=== PATIENT | female | born 1985 | race Caucasian/White ===

== ENCOUNTER → 2018-03-15 | Outpatient (CLI) | payer OTHER ==
--- NOTE | 2018-03-15 10:39 | P.HPBAR ---
Bariatric H&P - History & Physicial H&P Date: 03/15/18 History & Physicial: Visit/CC: Patient initial contact: Initial weight: Initial weight in pounds: Height: Initial BMI: Last weight: Current weight: Current weight in pounds: Current BMI: [place] body weight (based on NIH guidelines): Excess body weight loss: The patient is a 32 year-old F who presents for Bariatric Assessment. HPI: She is looking into the gastric bypass. Highest weight 288 pounds. She wants to get down to under 180 to 160 pounds. She is very healthy. She has lower back pain and sees a chiropractor for it. Has severe hip pain bilateral and has difficulty walking. She has knee pain both. She has ankle pain. Morbid obesity runs in her family with her grandmother losing 100 pounds on Viktoria Uziel. Her mother had weight loss surgery. She is seeing Katt Vaughan for medical supervised weight loss and is using an homar. She has tried medical supervised weight loss over 4 years ago with Paleo diet. Past tobacco use. She has occassional right upper quadrant pain. ABDOMEN: PLAN: 1. MBSC calculator 2. EGD advsied 3. 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 Obstetric history: First was a 7#15oz. This is her second and she has had care with la since 9 weeks. O neg , abs neg, Rub nonimmune, RPR NR, Hep B neg, normal 1hr GTT, GBS neg. Normal anatomy US and she got rhogam on 12-24-13 at 28 weeks. History of Any Multi-Drug Resistant Organisms: None Reported Past Surgical History: Section Past Anesthesia/Blood Transfusion Reactions: No Reported Reaction Past Psychological History: Depression Smoking Status: Never smoker Past Alcohol Use History: None Reported Past Drug Use History: None Reported Bariatric Checklist Checklist: Plan: Checklist: EGD: 1. Hiatal hernia: 2. H. Pylori: HgbA1c: Vitamin D: Smoking: Never smoker Primary care physician referral: Psychiatry clearance: Cardiology clearance: Sleep study: Diet journal: VTE risk score: VTE risk level: Rehab needs at discharge:
[2018-03-15 12:10] LABS: HCT 41.6 % (34.0-46.0); HGB 13.9 gm/dL (11.4-16.0); MCH 29.9 pg (25.0-35.0); MCHC 33.4 g/dL (31.0-37.0); MCV 89.5 fL (80.0-100.0); Mean Platelet Volume 6.3; Platelet Count 256 k/uL (150-450); RBC 4.65 m/uL (3.80-5.40); RDW 13.7 % (11.5-15.5); WBC 5.4 k/uL (3.8-10.6)
[2018-03-15 14:04] VITALS: BP 125/88; PULSE 85; TEMP 98.2; BMI 44.2
[2018-03-15 18:49] LABS: Albumin 4.5 g/dL (3.80-4.90); Albumin/Globulin Ratio 2.05 (1.20-2.10); Anion Gap 5.8 mmol/L (4.00-12.00); Calcium 9.5 mg/dL (8.7-10.3); Carbon Dioxide 28.2 mmol/L (21.6-31.8); Globulin 2.2 g/dL (2.1-3.7); Iron Saturation 20.4 (12.00-45.00); LDL Cholesterol,Calculated 108.6 mg/dL (0.0-131.0); Potassium 5.1 mmol/L (3.5-5.5); Total Bilirubin 0.6 mg/dL (0.2-1.2); Total Protein 6.7 g/dL (6.2-8.2); VLDL Calculation 17.4 mg/dL (5.00-40.00)
[2018-03-15 18:57] LABS: Vitamin D 25 Hydroxy 21.8 ng/mL (30.0-100.0)
[2018-03-15 20:01] LABS: Hemoglobin A1C 5.1 % (4.0-6.0)
[2018-03-15 21:26] LABS: Folate, Serum 15.6 ng/mL
== END | disposition home or self-care (01) ==
LOC: BARWHC3 09:44
PROVIDERS: ATTEND Surgery Plastic and Reconstructive Surgery
DX: E88.81 Metabolic syndrome and other insulin resistance (principal); E66.01 Morbid (severe) obesity due to excess calories; E44.0 Moderate protein-calorie malnutrition; E55.9 Vitamin D deficiency, unspecified; F32.9 Major depressive disorder, single episode, unspecified; I11.9 Hypertensive heart disease without heart failure; G47.30 Sleep apnea, unspecified; M54.5 Low back pain; M25.552 Pain in left hip; M25.551 Pain in right hip; R26.2 Difficulty in walking, not elsewhere classified; M25.562 Pain in left knee; M25.561 Pain in right knee; M25.579 Pain in unspecified ankle and joints of unspecified foot; Z83.49 Family history of other endocrine, nutritional and metabolic diseases; Z68.43 Body mass index [BMI] 50.0-59.9, adult; Z98.890 Other specified postprocedural states
CPT/HCPCS: 84425; 80061; 80053; 82607; 82728; 82746; 83540; 83550; 84443; 85027; 82306; 83036; 93005; 36415; G0463; 99211

== ENCOUNTER → 2019-05-16 | Outpatient (CLI) | payer OTHER ==
--- NOTE | 2019-05-16 10:36 | US ---
EXAMINATION TYPE: Transabdominal DATE OF EXAM: 05/16/2019 9:42 AM COMPARISON: NONE CLINICAL HISTORY: Z36 Confirm dates. EXAM PERFORMED: Transabdominal (TA) EXAM MEASUREMENTS: GESTATIONAL AGE / DATING Physician Established: Not yet established Dates by LMP: (10 weeks/0 days) EDC: 12/12/2019 Dates by First Scan: No previous this is first scan Dates by Current Scan for: (9 weeks/5 days) EDC: 12/14/2019 MATERNAL ANATOMY Uterus: 14.9 x 7.5 x 9.2 cm Right Ovary: 3.4 x 1.9 x 4.0cm Left Ovary: 3.6 x 3.1 x 3.4 cm Post CDS / Adnexa: wnl Presence of free fluid: none GESTATION / SURVEY CRL: 2.9 cm (9 weeks/5 days) Yolk Sac (normal less than 6mm): 0.5 cm Heart Rate: 160 bpm Rhythm: Normal IUP: Live IUP Date of LMP: 03/07/2019 Live IUP that correlates with LMP. IMPRESSION: Single live intrauterine with a sonographic age of 9 weeks and 5 days and estim ated date of delivery of 12/14/2019, concordant with menstrual age.
== END | disposition home or self-care (01) ==
LOC: RADUSWWP 09:24
PROVIDERS: ATTEND Obstetrics & Gynecology
DX: Z36.9 Encounter for antenatal screening, unspecified (principal)
CPT/HCPCS: 76801

== ENCOUNTER 2019-12-11 05:50 | Inpatient (IN) | payer OTHER ==
[2019-12-11] MEDS ORDERED: OXYTOCIN 10 UNIT/ML 1 ML VIAL IM PRN (06:07)
[2019-12-11] MEDS ORDERED: CARBOPROST TROMETHAMINE 250 MCG/ML 1 ML AMP IM PRN (06:07)
[2019-12-11] MEDS ORDERED: TERBUTALINE 1 MG/ML VIAL SQ PRN (06:07)
[2019-12-11] MEDS ORDERED: AMPICILLIN 2,000 MG in SODIUM CHLORIDE 0.9% 100 ML IVPB STA (06:07)
[2019-12-11] MEDS ORDERED: LIDOCAINE 0.5% (PF) 5 MG/ML (50 ML SDV) SQ PRN (06:07)
[2019-12-11] MEDS ORDERED: METHYLERGONOVINE 0.2 MG/ML 1 ML AMP IM PRN (06:07)
[2019-12-11] MEDS ORDERED: OXYTOCIN 30 UNITS/500 ML NS 30 UNIT in SALINE 1 500ML.BAG IV SCH (06:15)
[2019-12-11] MEDS: LACTATED RINGERS 1,000 ML IV SCH ×2 (06:25→12:09)
[2019-12-11 06:50] LABS: Basophils % (A) 0 %; Eosinophils % (A) 0 %; HCT 36.4 % (34.0-46.0); HGB 12.3 gm/dL (11.4-16.0); Lymphocytes # (A) 1.2 k/uL (1.0-4.8); Lymphocytes % (A) 16 %; MCH 30.7 pg (25.0-35.0); MCHC 33.9 g/dL (31.0-37.0); MCV 90.4 fL (80.0-100.0); Mean Platelet Volume 7.5; Monocytes # (A) 0.4 k/uL (0-1.0); Monocytes % (A) 6 %; Neutrophils # (A) 5.7 k/uL (1.3-7.7); Neutrophils % (A) 77 %; Platelet Count 224 k/uL (150-450); RBC 4.03 m/uL (3.80-5.40); RDW 14.4 % (11.5-15.5); WBC 7.5 k/uL (3.8-10.6)
[2019-12-11] MEDS ORDERED: AMPICILLIN 1,000 MG in SODIUM CHLORIDE 0.9% 50 ML IVPB SCH (10:08)
[2019-12-11] MEDS ORDERED: BENZOCAINE/MENTHOL SPRAY 1 GM/SPRAY AEROSOL TOPICAL PRN (13:38)
[2019-12-11] MEDS ORDERED: diphenhydrAMINE 25 MG CAP PO PRN ×2 (13:41→14:37)
[2019-12-11] MEDS ORDERED: diphenhydrAMINE 50 MG/ML 1 ML VIAL IVP PRN ×2 (13:41)
[2019-12-11] MEDS ORDERED: diphenhydrAMINE 50 MG CAP PO PRN ×2 (13:41→14:37)
[2019-12-11] MEDS ORDERED: ACETAMINOPHEN TAB 325 MG TAB PO PRN (13:41)
[2019-12-11] MEDS ORDERED: ZOLPIDEM 5 MG TAB PO PRN (13:41)
[2019-12-11] MEDS ORDERED: IBUPROFEN 600 MG TAB PO PRN (13:41)
[2019-12-11] MEDS ORDERED: LANOLIN CREAM 5 GM TUBE TOPICAL PRN (13:41)
[2019-12-11] MEDS ORDERED: SIMETHICONE 80 MG CHEWABLE PO PRN (13:41)
[2019-12-11] MEDS ORDERED: HYDROCORTISONE 2.5% RECTAL CREAM 30 GM TUBE RECTAL PRN (13:41)
[2019-12-11] MEDS ORDERED: OXYTOCIN 20 UNITS/1000 ML NS 1,000 ML IV SCH (14:45)
[2019-12-11] MEDS ORDERED: Rhogam IMMUNE GLOBULIN 1,500 UNIT/1 ML IM ONE (15:48)
[2019-12-11] MEDS: SENNOSIDES-DOCUSATE SODIUM 1 EACH TAB PO SCH (20:09)
[2019-12-12 06:03] LABS: Basophils % (A) 0 %; Eosinophils % (A) 1 %; HCT 36.2 % (34.0-46.0); HGB 11.9 gm/dL (11.4-16.0); Lymphocytes # (A) 1.4 k/uL (1.0-4.8); Lymphocytes % (A) 15 %; MCH 30.2 pg (25.0-35.0); MCV 91.7 fL (80.0-100.0); Mean Platelet Volume 7.4; Monocytes # (A) 0.6 k/uL (0-1.0); Monocytes % (A) 6 %; Neutrophils # (A) 7.3 k/uL (1.3-7.7); Neutrophils % (A) 78 %; Platelet Count 242 k/uL (150-450); RBC 3.95 m/uL (3.80-5.40); RDW 14.5 % (11.5-15.5); WBC 9.4 k/uL (3.8-10.6)
--- NOTE | 2019-12-12 07:11 | P.HPOB ---
History of Present Illness H&P Date: 12/11/19 Chief Complaint: Induction of labor 34-year-old presents at 39 weeks and 5 days for induction of labor. Her cervix was 2 cm dilated, 70% effaced, -2 station. She is yarelis irregularly. heart tones 135 with moderate variability and reactive. Review of Systems All systems: negative Constitutional: Denies chills, Denies fever Eyes: denies blurred vision, denies pain Ears, nose, mouth and throat: Denies headache, Denies sore throat Cardiovascular: Denies chest pain, Denies shortness of breath Respiratory: Denies cough Gastrointestinal: Denies abdominal pain, Denies diarrhea, Denies nausea, Denies vomiting Genitourinary: Denies dysuria, Denies hematuria Musculoskeletal: Denies myalgias Integumentary: Denies pruritus, Denies rash Neurological: Denies numbness, Denies weakness Psychiatric: Denies anxiety, Denies depression Endocrine: Denies fatigue, Denies weight change Past Medical History Past Medical History: GERD/Reflux, Supraventricular Tachycardia (SVT) Additional Past Medical History / Comment(s): villanueva parkinson white type svt, states GERD resolved with diet change, Sees Chiropractor prn., IBS, Hx of Severe Migraine. Obstetric history: First was a section section second was a vaginal after . She's had care with me since the first trimester. Blood type is O-, AB is negative, rubella immune, hepatitis B negative, RPR nonreactive, GBS positive. History of Any Multi-Drug Resistant Organisms: None Reported Past Surgical History: Section Past Anesthesia/Blood Transfusion Reactions: No Reported Reaction, Motion Sickness Past Psychological History: No Psychological Hx Reported, Depression Smoking Status: Never smoker Past Alcohol Use History: Occasional Past Drug Use History: None Reported - Past Family History Mother Family Medical History: No Reported History Medications and Allergies Home Medications Medication Instructions Recorded Confirmed Type Cholecalciferol [Vitamin D3] 5,000 unit PO DAILY 03/15/18 04/19/18 History Multivitamins, Thera [Multivitamin 1 tab PO DAILY 03/15/18 04/19/18 History (formulary)] Etonogestrel/Ethinyl Estradiol 1 each VG DIRECTED 04/19/18 04/23/18 History [Nuvaring Vaginal Ring] Allergies Allergy/AdvReac Type Severity Reaction Status Date / Time latex Allergy Itching, Verified 12/11/19 06:06 Skin Irritation Exam Osteopathic Statement: *. No significant issues noted on an osteopathic structural exam other than those noted in the History and Physical/Consult. Vital Signs Temp Pulse Resp BP Pulse Ox 12/12/19 00:00 68 16 124/65 12/11/19 20:00 98.2 F 85 16 102/60 98 12/11/19 16:00 98.1 F 80 16 107/76 12/11/19 13:52 85 16 116/56 12/11/19 13:30 74 16 122/67 12/11/19 12:15 84 16 113/58 12/11/19 12:00 88 16 128/62 Intake and Output 12/11/19 12/12/19 12/12/19 22:59 06:59 14:59 Other: Voiding Method Toilet # Voids 1 1 Heart: Regular rate and rhythm Lungs: Clear to auscultation bilaterally Abdomen: Soft, nontender Extremities: Negative Homans sign Results Result Diagrams: 12/12/19 04:32 Assessment and Plan (1) Normal labor Current Visit: Yes Status: Acute Code(s): O80 - ENCOUNTER FOR FULL-TERM UNCOMPLICATED DELIVERY; Z37.9 - OUTCOME OF DELIVERY, UNSPECIFIED SNOMED Code(s): 83572613 Plan: 1. Induction of labor with amniotomy and Pitocin 2. Anticipate normal vaginal delivery
--- NOTE | 2019-12-12 07:13 | P.PROBDLV ---
Vaginal Delivery Note - . Vaginal Delivery Note: 34-year-old presents at 39 weeks and 5 days for induction of labor. Her cervix was 2 cm dilated, 70% effaced, -2 station. She is yarelis irregularly. heart tones 135 with moderate variability and reactive. Amniotomy was performed at 6:53 AM and clear fluid noted. Pitocin had also been started. Her cervix slowly dilated through the day. Her cervix is completely dilated 11:36 AM. She pushed, and delivered a viable male infant over intact perineum at 11:44 AM. Head delivered OA, anterior shoulder delivered gentle downward guidance followed by posterior shoulder and rest of body. Nose and mouth bulb suctioned, cord clamped and cut, placed mother's abdomen. Apgars 9, 9, weight 7 lbs. 11 oz. Placenta delivered spontaneously, intact with three-vessel cord at 11:46 AM. Vagina, cervix, perineum inspected. No lacerations noted. Estimated blood loss 150 mL. Mother and baby in stable condition.
[2019-12-12 11:06] VITALS: RESP 18; TEMP 98.4
[2019-12-12] MEDS: SENNOSIDES-DOCUSATE SODIUM 1 EACH TAB PO SCH (11:07)
--- NOTE | 2019-12-12 12:21 | P.DS ---
Providers Date of admission: 12/11/19 05:50 Expected date of discharge: 12/12/19 Attending physician: Martha Wiley Primary care physician: Stated None - Discharge Diagnosis(es) (1) Normal labor Current Visit: Yes Status: Resolved (2) Vaginal after Current Visit: No Status: Acute Hospital Course: Patient presented for induction of labor. She underwent a normal vaginal delivery. Her course uncomplicated. She'll be discharged home day #1 in stable condition follow-up with me in 6 weeks. Plan - Discharge Summary New Discharge Prescriptions: No Action Multivitamins, Thera [Multivitamin (formulary)] 1 tab PO DAILY Cholecalciferol [Vitamin D3] 5,000 unit PO DAILY Etonogestrel/Ethinyl Estradiol [Nuvaring Vaginal Ring] 1 each VG DIRECTED Discharge Medication List Cholecalciferol [Vitamin D3] 5,000 unit PO DAILY 03/15/18 [History] Multivitamins, Thera [Multivitamin (formulary)] 1 tab PO DAILY 03/15/18 [History] Etonogestrel/Ethinyl Estradiol [Nuvaring Vaginal Ring] 1 each VG DIRECTED 04/19/18 [History]
[2019-12-12 12:36] VITALS: BP 128/72; PULSE 82
== END 2019-12-12 13:55 | disposition home or self-care (01) | DRG 807 ==
LOC: 4FBP 05:50
PROVIDERS: ADMIT Obstetrics & Gynecology; ATTEND Obstetrics & Gynecology
PROC: 3E033VJ Introduction of Other Hormone into Peripheral Vein, Percutaneous Approach (ICD-10-PCS; 2019-12-11)
PROC: 3E0234Z Introduction of Serum, Toxoid and Vaccine into Muscle, Percutaneous Approach (ICD-10-PCS; 2019-12-11)
PROC: 10E0XZZ Delivery of Products of Conception, External Approach (ICD-10-PCS; principal; 2019-12-12)
PROC: 10907ZC Drainage of Amniotic Fluid, Therapeutic from Products of Conception, Via Natural or Artificial Opening (ICD-10-PCS; 2019-12-12)
DX: O99.824 Streptococcus B carrier state complicating childbirth (principal); Z37.0 Single live birth; O99.42 Diseases of the circulatory system complicating childbirth; I45.6 Pre-excitation syndrome; O99.62 Diseases of the digestive system complicating childbirth; K58.9 Irritable bowel syndrome, unspecified; Z3A.39 39 weeks gestation of pregnancy; Z67.91 Unspecified blood type, Rh negative; Z98.891 History of uterine scar from previous surgery; Z79.899 Other long term (current) drug therapy; Z87.19 Personal history of other diseases of the digestive system; Z91.040 Latex allergy status
CPT/HCPCS: 85025; 85461; 86850; 86870; 86880; 86900; 86901

== ENCOUNTER → 2020-11-17 | Outpatient (CLI) | payer BC ==
[2020-11-17 16:32] LABS: HCT 44.3 % (34.0-46.0); HGB 14.7 gm/dL (11.4-16.0); MCH 30.3 pg (25.0-35.0); MCHC 33.2 g/dL (31.0-37.0); MCV 91.1 fL (80.0-100.0); Mean Platelet Volume 7.6; Platelet Count 250 k/uL (150-450); RBC 4.86 m/uL (3.80-5.40); WBC 6.6 k/uL (3.8-10.6)
[2020-11-17 16:43] LABS: Partial Thromboplastin Time 23.6 sec (22.0-30.0); Prothrombin Time 10.3 sec (9.0-12.0)
[2020-11-17 16:47] LABS: ALT 31 U/L (4-34); AST 27 U/L (14-36); African American GFR (CKD) >90 (>60 ml/min/1.73 sqM); Albumin 4.8 g/dL (3.5-5.0); Alkaline Phosphatase 108 U/L (38-126); Anion Gap 11 mmol/L; Blood Urea Nitrogen 21 mg/dL (7-17); Carbon Dioxide 24 mmol/L (22-30); Chloride 103 mmol/L (98-107); Glucose 92 mg/dL (74-99); Non-African American GFR(CKD) >90 (>60 ml/min/1.73 sqM); Phosphorus 3.8 mg/dL (2.5-4.5); Potassium 4.2 mmol/L (3.5-5.1); Sodium 138 mmol/L (137-145); Total Bilirubin 0.6 mg/dL (0.2-1.3); Total Protein 7.6 g/dL (6.3-8.2)
[2020-11-18 05:07] LABS: % Iron Saturation 20.63 (12.00-45.00); Chol/HDL Ratio 2.43; Cholesterol 238 mg/dL (0-200); Iron 72 ug/dL (50-170); LDL Cholesterol,Calculated 115.4 mg/dL (0.0-131.0); Total Iron Binding Capacity 349 ug/dL (228-460)
[2020-11-18 05:15] LABS: Ferritin 35.4 ng/mL (10.0-291.0)
[2020-11-18 06:02] LABS: Folate, Serum >24.0 ng/mL
== END | disposition home or self-care (01) ==
LOC: LABPAT 16:14
PROVIDERS: ATTEND Surgery Plastic and Reconstructive Surgery
DX: E89.1 Postprocedural hypoinsulinemia (principal); D50.8 Other iron deficiency anemias; E44.0 Moderate protein-calorie malnutrition; E55.9 Vitamin D deficiency, unspecified; K74.1 Hepatic sclerosis; N19 Unspecified kidney failure; K50.90 Crohn's disease, unspecified, without complications
CPT/HCPCS: 80053; 80061; 82306; 82525; 82607; 82728; 82746; 83036; 83540; 83550; 83735; 83970; 84100; 84134; 84255; 84425; 84443; 84590; 85027; 85610; 85730; 93005

== ENCOUNTER 2020-12-21 09:21 | Day surgery (SDC) | payer BC ==
[2020-12-16 10:24] VITALS: BMI 40.8
--- NOTE | 2020-12-21 08:00 | P.GSHP ---
History of Present Illness H&P Date: 12/21/20 CHIEF COMPLAINT: GERD HISTORY OF PRESENT ILLNESS: The patient is a 35-year-old female who presents reports gastroesophageal reflux disease. Upper endoscopy was offered for further evaluation and management. PAST MEDICAL HISTORY: Please see list. PAST SURGICAL HISTORY: Please see list. MEDICATIONS: Please see list. ALLERGIES: Please see list. SOCIAL HISTORY: No illicit drug use FAMILY HISTORY: No reports of Crohn disease or ulcerative colitis. REVIEW OF ORGAN SYSTEMS: CONSTITUTIONAL: No reports of fevers or chills. GI: Denies any blood in stools or constipation. PHYSICAL EXAM: VITAL SIGNS: Stable GENERAL: Well-developed and pleasant in no acute distress. HEENT: No scleral icterus. Extraocular movements grossly intact. Moist buccal mucosa. NECK: Supple without lymphadenopathy. CHEST: Unlabored respirations. Equal bilateral excursions. CARDIOVASCULAR: Regular rate and rhythm. Distal 2+ pulses. ABDOMEN: Soft, nondistended. MUSCULOSKELETAL: No clubbing, cyanosis, or edema. ASSESSMENT: 1. Gastroesophageal reflux disease PLAN: 1. Recommend proceeding with an upper endoscopy Past Medical History Past Medical History: GERD/Reflux, Supraventricular Tachycardia (SVT) Additional Past Medical History / Comment(s): villanueva parkinson white type svt, states GERD resolved with diet change, Sees Chiropractor prn., IBS, Hx of Severe Migraine. History of Any Multi-Drug Resistant Organisms: None Reported Past Surgical History: Section, Heart Catheterization Additional Past Surgical History / Comment(s): csection X1. wisdom teeth when 17 y.o. Past Anesthesia/Blood Transfusion Reactions: No Reported Reaction, Motion Sickness Smoking Status: Never smoker - Past Family History Mother Family Medical History: No Reported History Medications and Allergies Home Medications Medication Instructions Recorded Confirmed Type Cholecalciferol [Vitamin D3] 5,000 unit PO DAILY 03/15/18 12/16/20 History Multivitamins, Thera [Multivitamin 1 tab PO DAILY 03/15/18 12/16/20 History (formulary)] Etonogestrel/Ethinyl Estradiol 1 each VG DIRECTED 04/19/18 12/16/20 History [Nuvaring Vaginal Ring] Allergies Allergy/AdvReac Type Severity Reaction Status Date / Time latex Allergy Itching, Verified 12/16/20 10:15 Skin Irritation
[~2020-12-21 09:21] MED LIST: LACTATED RINGERS 1,000 ML IV SCH
[2020-12-21] MEDS ORDERED: LACTATED RINGERS 1,000 ML IV ONE (10:00)
[2020-12-21 10:01] VITALS: TEMP 97.1
[2020-12-21] MEDS ORDERED: LIDOCAINE 1% INJ 10MG/ML (20 ML MDV) ONE (10:19)
[2020-12-21] MEDS ORDERED: PROPOFOL 10 MG/ML 20 ML VIAL IV ONE (10:19)
--- NOTE | 2020-12-21 10:37 | P.PCN ---
Date of Procedure: 12/21/20 Description of Procedure: PREOPERATIVE DIAGNOSIS: Gastroesophageal reflux disease. Morbid obesity. POSTOPERATIVE DIAGNOSIS: Morbid obesity. Gastritis. Gastroesophageal reflux disease. OPERATION: Esophagogastroduodenoscopy with biopsies along antrum. SURGEON: Abril Gregory MD ANESTHESIA: MAC. INDICATIONS: The patient is a 35-year-old female who presents with a history of reflux disease. Benefits and risks of the procedure were described. Informed consent was obtained. DESCRIPTION: The patient was brought into the endoscopy suite and laid in the left lateral decubitus position. An Olympus gastroscope was passed along the posterior oropharynx down to the distal esophagus where the squamocolumnar junction was encountered at 37 cm from the incisors. The stomach was entered and no bile reflux was found. Additional findings are listed below. Biopsies with cold forceps were obtained of the antrum. The first through third portion of the duodenum was examined and unremarkable. Retroflexion of the scope confirmed Hill grade 3 lower esophageal valve. The squamocolumnar junction demonstrated LA grade A erosive esophagitis. The stomach was desufflated. The patient tolerated the procedure well. FINDINGS: Squamocolumnar junction 37 cm from the incisors. Diaphragmatic hiatus at 37 cm. Hill grade 2 lower esophageal valve. LA grade A erosive esophagitis. No active duodenitis. Chronic gastritis RECOMMENDATIONS: Upper endoscopy as needed. Plan - Discharge Summary Discharge Rx Participant: No New Discharge Prescriptions: Continue Multivitamins, Thera [Multivitamin (formulary)] 1 tab PO DAILY Cholecalciferol [Vitamin D3 (25 Mcg = 1000 Iu)] 5,000 unit PO DAILY Etonogestrel/Ethinyl Estradiol [Nuvaring Vaginal Ring] 1 each VG DIRECTED Discharge Medication List Cholecalciferol [Vitamin D3 (25 Mcg = 1000 Iu)] 5,000 unit PO DAILY 03/15/18 [History] Multivitamins, Thera [Multivitamin (formulary)] 1 tab PO DAILY 03/15/18 [History] Etonogestrel/Ethinyl Estradiol [Nuvaring Vaginal Ring] 1 each VG DIRECTED 04/19/18 [History] [facility]Ref[facility] [place] [place] [facility] [place] [facility] Patient Instructions/Handouts: Upper Endoscopy (DC), *Surgery [facility] - (Anesthesia) Endoscopy Discharge Instructions, Gastritis (DC) Discharge Disposition: HOME SELF-CARE
[2020-12-21 11:15] VITALS: BP 126/85; PULSE 73; RESP 16
== END 2020-12-21 11:17 | disposition home or self-care (01) ==
LOC: ORWHC2ENDO 09:21
PROVIDERS: ATTEND Surgery Plastic and Reconstructive Surgery
DX: K29.50 Unspecified chronic gastritis without bleeding (principal); K21.9 Gastro-esophageal reflux disease without esophagitis; K29.70 Gastritis, unspecified, without bleeding; E66.01 Morbid (severe) obesity due to excess calories; Z68.1 Body mass index [BMI] 19.9 or less, adult; Z91.040 Latex allergy status
CPT/HCPCS: 43239; 81025; 88305; J2001; J2704

== ENCOUNTER → 2021-11-17 | Outpatient (CLI) | payer OTHER ==
--- NOTE | 2021-11-17 16:42 | US ---
EXAMINATION TYPE: US OB >= 14 wk fetus DATE OF EXAM: 11/17/2021 COMPARISON: None CLINICAL HISTORY: 36-year-old female O36.63X0 MATERNAL CARE FOR EXCESS GROWTH, TH TECHNIQUE: Transabdominal (TA) FINDINGS: GESTATIONAL AGE / DATING Physician Established: (34weeks/5 days) EDC: 12/24/2021 Dates by LMP: LMP unknown Dates by First Scan: No previous here Dates by Current Scan: (35weeks/4 days) EDC: 12/18/2021 SURVEY IUP: Single PLACENTA: Fundal/Posterior PREVIA: No Previa STAN: 16.4cmNormal CERVICAL LENGTH (transabdominal: norm > 3.0cm): 3.6cm BIOMETRY PRESENTATION: Vertex LIE: Longitudinal BPD: 8.9cm 36weeks / 1 days HC: 32.2cm 36weeks / 3 days AC: 3.1.1cm 35weeks / 0 days FL: 7.0cm 36weeks / 0 days ESTIMATED WEIGHT IN GRAMS: 2709grams ESTIMATED WEIGHT IN LBS/OZ: 6 lbs. 0 oz. WEIGHT PERCENTAGE BASED ON ESTABLISHED DATES: 71% HC/AC: 1.04Normal FL/AC: 22.58 Normal HEART RATE: 137bpm RHYTHM: Normal MATERNAL WALL MEASUREMENT: 5.7cmfrom skin to anterior uterine wall (if exam limited due to body habit us). IMPRESSION: 1. Single live intrauterine with established gestational age of 34 weeks 5 days. Current ul trasound biometry is larger but concordant at 35 weeks 4 days (EFW 71%). 2. Cephalic presentation. Posterior and fundal placenta.
== END | disposition home or self-care (01) ==
LOC: RADUSWWP 10:55
PROVIDERS: ATTEND Obstetrics & Gynecology
DX: O36.63X0 Maternal care for excessive fetal growth, third trimester, not applicable or unspecified (principal); Z3A.35 35 weeks gestation of pregnancy
CPT/HCPCS: 76805

== ENCOUNTER 2021-12-19 10:59 | Outpatient (CLI) | payer OTHER ==
[2021-12-19 13:03] VITALS: BP 139/89; PULSE 78; RESP 18; TEMP 97.3
--- NOTE | 2021-12-20 01:10 | P.MSEPDOC ---
Presenting Problems - Arrival Data Date of Arrival on Unit: 12/19/21 Time of Arrival on Unit: 10:59 Mode of Transport: Ambulatory - Complaint OB-Reason for Admission/Chief Complaint: Normal Show Comment: pt concerns for vaginal bleeding she thinks may be bloody show, Pt shows RN photo, appears like mucousy with blood in mucous. possible mucous plug. Medical History - Information : 4 Para: 3 Term: 3 : 0 Abortions: Spontaneous or Elective: 0 Number of Living Children: 3 - Gestational Age Gestational Age by RIC (wks/days): 39 Weeks and 2 Days - History Complications: Prior Comment: C/S with first delivery Review of Systems - Review of Systems Constitutional: No problems Breast: No problems ENT: No problems Cardiovascular: No problems Respiratory: No problems Gastrointestinal: No problems Genitourinary: No problems Musculoskeletal: No problems Neurological: No problems Skin: No problems Vital Signs - Temperature Temperature: 97.3 F Temperature Source: Temporal Artery Scan - Pulse Right Pulse Oximetery Pulse Rate: 78 Pulse Assessment Method: Pulse Oximetry - Respirations Respiratory Rate: 18 Oxygen Delivery Method: Room Air O2 Sat by Pulse Oximetry: 99 - Blood Pressure Right Arm Blood Pressure: 139/89 Blood Pressure Mean: 105 Blood Pressure Source: Automatic Cuff - Comment Vital Signs Comment: Repeat BP 114/69 Medical Screen Scoring - Cervical Exam Dilation (cm): 3 Effacement (%): 50 Station: -2 Membranes: Intact - Uterine Contractions Intensity: Mild Resting: Soft to palpation - Assessment - Baby A Baseline FHR: 130 Heart Rate - NICHD Category: Category I (Normal) NST: Reactive Physician Notification - Physician Notified Physician Notified Date: 12/19/21 Physician Notified Time: 12:20 Physician: Lakeshia Llamas Order Received: Yes - Notification Comment Comment: okay to discharge patient home and have return when contractions are stronger and more regular or if she has concerns for vaginal bleeding again that looks like true blood Maternal Triage Index - Maternal Triage Index Presenting for scheduled procedure w/no complaint: No - Stat/Priority 1 Stat Priority 1: No - Urgent/Priority 2 Urgent Priority 2: No - Prompt/Priority 3 Prompt Priority 3: No - Non-Urgent/Priority 4 Non-Urgent Priority 4: Yes Criteria Met for Priority 4: pt concerns for vaginal bleeding she thinks may be bloody show, showed RN photos, appears possible mucous plug. no bleeding with cervical exams noted. Disposition - Disposition OB Disposition: Discharge to home Discharge Date: 12/19/21 Discharge Time: 12:30 I agree with the RN Medical Screening Exam: Yes Case reviewed; plan agreed upon as documented in EMR&OBIX.: Yes Diagnosis: SPOTTING COMPLICATING , THIRD TRIMESTER
== END 2021-12-19 12:30 | disposition home or self-care (01) ==
LOC: FBPOP 10:59
PROVIDERS: ATTEND Obstetrics & Gynecology
DX: O26.853 Spotting complicating pregnancy, third trimester (principal); Z3A.39 39 weeks gestation of pregnancy; Z91.040 Latex allergy status
CPT/HCPCS: 36415; 99213

== ENCOUNTER 2021-12-20 07:46 | Inpatient (IN) | payer OTHER ==
[2021-12-20] MEDS ORDERED: TERBUTALINE 1 MG/ML VIAL SQ PRN (08:41)
[2021-12-20] MEDS ORDERED: LIDOCAINE 0.5% (PF) 5 MG/ML (50 ML SDV) SQ PRN (08:41)
[2021-12-20] MEDS ORDERED: METHYLERGONOVINE 0.2 MG/ML 1 ML AMP IM PRN (08:41)
[2021-12-20] MEDS ORDERED: OXYTOCIN 10 UNIT/ML 1 ML VIAL IM PRN (08:41)
[2021-12-20] MEDS ORDERED: AMPICILLIN 2,000 MG in SODIUM CHLORIDE 0.9% 100 ML IVPB STA (08:41)
[2021-12-20] MEDS ORDERED: CARBOPROST TROMETHAMINE 250 MCG/ML 1 ML AMP IM PRN (08:41)
[2021-12-20] MEDS ORDERED: LACTATED RINGERS 1,000 ML IV SCH (08:45)
[2021-12-20] MEDS ORDERED: OXYTOCIN 30 UNITS/500 ML NS 30 UNIT in SALINE 1 500ML.BAG IV SCH ×2 (08:45→16:45)
[2021-12-20 09:05] LABS: Basophils % (A) 0 %; Eosinophils % (A) 1 %; HCT 40.5 % (34.0-46.0); HGB 13.7 gm/dL (11.4-16.0); Lymphocytes # (A) 1.1 k/uL (1.0-4.8); Lymphocytes % (A) 13 %; MCH 30.9 pg (25.0-35.0); MCHC 33.7 g/dL (31.0-37.0); MCV 91.5 fL (80.0-100.0); Mean Platelet Volume 7.8; Monocytes # (A) 0.4 k/uL (0-1.0); Monocytes % (A) 5 %; Neutrophils # (A) 6.5 k/uL (1.3-7.7); Neutrophils % (A) 80 %; Platelet Count 220 k/uL (150-450); RBC 4.42 m/uL (3.80-5.40); RDW 13.5 % (11.5-15.5); WBC 8.2 k/uL (3.8-10.6)
[2021-12-20] MEDS ORDERED: AMPICILLIN 1,000 MG in SODIUM CHLORIDE 0.9% 50 ML IVPB SCH (12:45)
--- NOTE | 2021-12-20 13:06 | P.HPOB ---
History of Present Illness H&P Date: 12/20/21 Chief Complaint: labor 36-year-old presents at 39 weeks and 3 days in labor. Her cervix is 4 cm dilated, 70% effaced, -2 station. She skin tracking every 2-5 minutes. heart tones 135 with moderate variability and reactive. Review of Systems All systems: negative Constitutional: Denies chills, Denies fever Eyes: denies blurred vision, denies pain Ears, nose, mouth and throat: Denies headache, Denies sore throat Cardiovascular: Denies chest pain, Denies shortness of breath Respiratory: Denies cough Gastrointestinal: Denies abdominal pain, Denies diarrhea, Denies nausea, Denies vomiting Genitourinary: Denies dysuria, Denies hematuria Musculoskeletal: Denies myalgias Integumentary: Denies pruritus, Denies rash Neurological: Denies numbness, Denies weakness Psychiatric: Denies anxiety, Denies depression Endocrine: Denies fatigue, Denies weight change Past Medical History Past Medical History: GERD/Reflux, Supraventricular Tachycardia (SVT) Additional Past Medical History / Comment(s): villanueva parkinson white type svt, states GERD resolved with diet change, Sees Chiropractor prn., IBS, Hx of Severe Migraine. History of Any Multi-Drug Resistant Organisms: None Reported Past Surgical History: Section, Heart Catheterization Additional Past Surgical History / Comment(s): csection X1. wisdom teeth when 17 y.o. Past Anesthesia/Blood Transfusion Reactions: No Reported Reaction, Motion Sickness Past Psychological History: Depression Additional Psychological History / Comment(s): NO RX AT THIS TIME Smoking Status: Former smoker Past Alcohol Use History: Occasional Past Drug Use History: None Reported - Past Family History Mother Family Medical History: No Reported History Medications and Allergies Home Medications Medication Instructions Recorded Confirmed Type Aspirin [Children's Aspirin] 81 mg PO DAILY 12/19/21 12/20/21 History Vit No.179/Iron/Folic 1 each PO DAILY 12/19/21 12/20/21 History [ Tablet] Allergies Allergy/AdvReac Type Severity Reaction Status Date / Time latex Allergy Itching, Verified 12/20/21 08:08 Skin Irritation Exam Osteopathic Statement: *. No significant issues noted on an osteopathic structural exam other than those noted in the History and Physical/Consult. Vital Signs Temp Pulse Resp BP Pulse Ox 12/20/21 09:17 98.3 F 75 16 122/81 98 12/20/21 08:51 98.3 F 75 16 122/81 98 Intake and Output 12/19/21 12/20/21 12/20/21 22:59 06:59 14:59 Other: # Voids 1 Weight 119.295 kg Heart: Regular rate and rhythm Lungs: Clear to auscultation bilaterally Abdomen: Soft, nontender Extremities: Negative Homans sign Results Result Diagrams: 12/20/21 08:45 Assessment and Plan (1) Normal labor Current Visit: No Status: Resolved Code(s): O80 - ENCOUNTER FOR FULL-TERM UNCOMPLICATED DELIVERY; Z37.9 - OUTCOME OF DELIVERY, UNSPECIFIED SNOMED Code(s): 86751241 (2) Previous section Narrative/Plan: Status post vaginal after Current Visit: Yes Status: Acute Code(s): Z98.891 - HISTORY OF UTERINE SCAR FROM PREVIOUS SURGERY SNOMED Code(s): 782343460 Plan: 1. Admit to family place 2. Expectant management with Pitocin augmentation if necessary 3. Antibiotics for GBS prophylaxis 4. Anticipate normal vaginal delivery
--- NOTE | 2021-12-20 13:09 | P.MSEPDOC ---
Presenting Problems - Arrival Data Date of Arrival on Unit: 12/20/21 Time of Arrival on Unit: 08:05 Mode of Transport: Ambulatory - Complaint OB-Reason for Admission/Chief Complaint: Possible Onset of Labor Comment: pt arrived c/o contractions q 4-6 minutes apart anmd lasting 60 seconds but denies leaking of fluid Medical History - Information : 4 Para: 3 Term: 3 : 0 Abortions: Spontaneous or Elective: 0 Number of Living Children: 3 - Gestational Age Gestational Age by RIC (wks/days): 39 Weeks and 3 Days - History Complications: Prior Review of Systems - Review of Systems Constitutional: No problems Breast: No problems ENT: No problems Cardiovascular: No problems Respiratory: No problems Gastrointestinal: No problems Genitourinary: No problems Musculoskeletal: No problems Neurological: No problems Skin: No problems Vital Signs - Temperature Temperature: 98.3 F Temperature Source: Oral - Pulse Right Brachial Pulse Rate: 75 Pulse Assessment Method: Automatic Cuff - Respirations Respiratory Rate: 16 Oxygen Delivery Method: Room Air O2 Sat by Pulse Oximetry: 98 - Blood Pressure Right Arm Blood Pressure: 122/81 Blood Pressure Mean: 94 Blood Pressure Source: Automatic Cuff Medical Screen Scoring - Cervical Exam Dilation (cm): 4 Effacement (%): 70 Station: -2 Membranes: Intact - Uterine Contractions Intensity: Mild Resting: Soft to palpation - Assessment - Baby A Baseline FHR: 120 Heart Rate - NICHD Category: Category I (Normal) NST: Reactive Physician Notification - Physician Notified Physician Notified Date: 12/20/21 Physician Notified Time: 08:30 Physician: dr ha New Order Received: Yes - Notification Comment Comment: admit pt for labor Maternal Triage Index - Non-Urgent/Priority 4 Non-Urgent Priority 4: Yes Criteria Met for Priority 4: pt 39/3/7 week gestation that showed up with mild contractions dilated 4 cm 70 % effaaced -2 station v/s stable dr ha in department and checked pt and orders received to admit pt Disposition - Disposition OB Disposition: Admit Discharge Date: 12/20/21 Discharge Time: 08:30 I agree with the RN Medical Screening Exam: Yes Case reviewed; plan agreed upon as documented in EMR&OBIX.: Yes Diagnosis: ENCOUNTER FOR FULL-TERM UNCOMPLICATED DELIVERY
[2021-12-20] MEDS ORDERED: SIMETHICONE 80 MG CHEWABLE PO PRN (16:42)
[2021-12-20] MEDS ORDERED: diphenhydrAMINE 50 MG CAP PO PRN (16:42)
[2021-12-20] MEDS ORDERED: HYDROCORTISONE 2.5% RECTAL CREAM 30 GM TUBE RECTAL PRN (16:42)
[2021-12-20] MEDS ORDERED: ACETAMINOPHEN ORAL SUSP 160 MG/5 ML CUP PO PRN (16:42)
[2021-12-20] MEDS ORDERED: IBUPROFEN 600 MG TAB PO PRN (16:42)
[2021-12-20] MEDS ORDERED: Rhogam IMMUNE GLOBULIN 1,500 UNIT/1 ML IM ONE (16:42)
[2021-12-20] MEDS ORDERED: diphenhydrAMINE 50 MG/ML 1 ML VIAL IVP PRN ×2 (16:42)
[2021-12-20] MEDS ORDERED: BENZOCAINE/MENTHOL SPRAY 1 GM/SPRAY AEROSOL TOPICAL PRN (16:42)
[2021-12-20] MEDS ORDERED: LANOLIN CREAM 5 GM TUBE TOPICAL PRN (16:42)
[2021-12-20] MEDS ORDERED: diphenhydrAMINE 25 MG CAP PO PRN (16:42)
[2021-12-20] MEDS ORDERED: ZOLPIDEM 5 MG TAB PO PRN (16:42)
--- NOTE | 2021-12-20 17:15 | P.PROBDLV ---
Vaginal Delivery Note - . Vaginal Delivery Note: 36-year-old presents at 39 weeks and 3 days in labor. Her cervix is 4 cm dilated, 70% effaced, -2 station. She is having contractions every 2-5 minutes. heart tones 135 with moderate variability and reactive. Patient was admitted to [facility] and given ampicillin 2 g for GBS prophylaxis. Pitocin was started soon after. Amniotomy performed at 12:53 PM clear fluid noted. Her cervix was completely dilated at 1335. She pushed, delivered a vi able male over intact perineum under epidural anesthesia at 1337. Head delivered OA, nuchal cord 1 easily reduced, anterior shoulder delivered gentle downward guidance for by posterior shoulder and rest of body. Nose mouth bulb suctioned, cord clamped and cut, placed mother's abdomen. Apgars 8, 9, weight 7 lbs. 7 oz. Placenta delivered spontaneously, intact with three-vessel cord at 1339. Vagina, cervix, perineum inspected. No lacerations noted. Estimated blood loss 150 mL. Mother and baby in stable condition.
[2021-12-20] MEDS: SENNOSIDES-DOCUSATE SODIUM 1 EACH TAB PO SCH (19:52)
[2021-12-21 07:28] LABS: Basophils % (A) 0 %; Eosinophils % (A) 0 %; HCT 36.6 % (34.0-46.0); Lymphocytes # (A) 1.1 k/uL (1.0-4.8); Lymphocytes % (A) 14 %; MCH 30.8 pg (25.0-35.0); MCHC 32.8 g/dL (31.0-37.0); MCV 93.9 fL (80.0-100.0); Mean Platelet Volume 7.5; Monocytes # (A) 0.3 k/uL (0-1.0); Monocytes % (A) 4 %; Neutrophils # (A) 6.2 k/uL (1.3-7.7); Neutrophils % (A) 81 %; Platelet Count 224 k/uL (150-450); RDW 14.2 % (11.5-15.5); WBC 7.7 k/uL (3.8-10.6)
[2021-12-21] MEDS: SENNOSIDES-DOCUSATE SODIUM 1 EACH TAB PO SCH ×2 (07:53→20:31)
--- NOTE | 2021-12-21 09:11 | P.DS ---
Providers Date of admission: 12/20/21 08:42 Expected date of discharge: 12/21/21 Attending physician: Martha Wiley Primary care physician: Stated None - Discharge Diagnosis(es) (1) Normal labor Current Visit: No Status: Resolved (2) Previous section Current Visit: Yes Status: Resolved (3) Vaginal after Current Visit: No Status: Acute Hospital Course: Patient presented in active labor. She underwent a normal vaginal delivery with some Pitocin augmentation. course was uncomplicated. She denies nausea, vomiting, chest pain, shortness of breath or any calf pain. Patient will be discharged home day #1 in stable condition to follow-up with me in 6 weeks. Plan - Discharge Summary New Discharge Prescriptions: No Action Vit No.179/Iron/Folic [ Tablet] 1 each PO DAILY Aspirin [Children's Aspirin] 81 mg PO DAILY Discharge Medication List Aspirin [Children's Aspirin] 81 mg PO DAILY 12/19/21 [History] Vit No.179/Iron/Folic [ Tablet] 1 each PO DAILY 12/19/21 [History] Follow up Appointment(s)/Referral(s): Martha Wiley DO [Doctor of Osteopathic Medicine] - 6 Weeks Discharge Disposition: HOME SELF-CARE
[2021-12-21 16:38] VITALS: PULSE 72
[2021-12-22 00:36] VITALS: BP 133/81; RESP 16; TEMP 97.8
== END 2021-12-22 06:45 | disposition home or self-care (01) | DRG 807 ==
LOC: FBPOP 07:46 → 4FBP 08:42
PROVIDERS: ADMIT Obstetrics & Gynecology; ATTEND Obstetrics & Gynecology
PROC: 10907ZC Drainage of Amniotic Fluid, Therapeutic from Products of Conception, Via Natural or Artificial Opening (ICD-10-PCS; principal; 2021-12-20)
PROC: 10E0XZZ Delivery of Products of Conception, External Approach (ICD-10-PCS; principal; 2021-12-20)
PROC: 3E0234Z Introduction of Serum, Toxoid and Vaccine into Muscle, Percutaneous Approach (ICD-10-PCS; principal; 2021-12-20)
DX: O34.219 Maternal care for unspecified type scar from previous cesarean delivery (principal); Z37.0 Single live birth; O26.893 Other specified pregnancy related conditions, third trimester; Z67.41 Type O blood, Rh negative; O69.81X0 Labor and delivery complicated by cord around neck, without compression, not applicable or unspecified; O99.344 Other mental disorders complicating childbirth; F32.A Depression, unspecified; Z87.19 Personal history of other diseases of the digestive system; Z86.79 Personal history of other diseases of the circulatory system; Z87.891 Personal history of nicotine dependence; Z79.82 Long term (current) use of aspirin; Z91.040 Latex allergy status; Z3A.39 39 weeks gestation of pregnancy
CPT/HCPCS: 59025; 85025; 85461; 86850; 86900; 86901; 99213

== ENCOUNTER 2024-02-12 08:13 | Day surgery (SDC) | payer OTHER, BC ==
[2024-02-08 12:42] VITALS: BMI 28.0
--- NOTE | 2024-02-12 06:50 | P.HPOB ---
History of Present Illness H&P Date: 02/12/24 Chief Complaint: menorrhagia 38 year old presents for D&C hysteroscopy and endometrial ablation with NovaSure. Review of Systems All systems: negative Constitutional: Denies chills, Denies fever Eyes: denies blurred vision, denies pain Ears, nose, mouth and throat: Denies headache, Denies sore throat Cardiovascular: Denies chest pain, Denies shortness of breath Respiratory: Denies cough Gastrointestinal: Denies abdominal pain, Denies diarrhea, Denies nausea, Denies vomiting Genitourinary: Denies dysuria, Denies hematuria Musculoskeletal: Denies myalgias Integumentary: Denies pruritus, Denies rash Neurological: Denies numbness, Denies weakness Psychiatric: Denies anxiety, Denies depression Endocrine: Denies fatigue, Denies weight change Past Medical History Past Medical History: Supraventricular Tachycardia (SVT) Additional Past Medical History / Comment(s): villanueva parkinson white type svt, IBS, Hx of Severe Migraine. HEAVY MENSTUAL PERIOD History of Any Multi-Drug Resistant Organisms: None Reported Past Surgical History: Bariatric Surgery, Cardiac Ablation, Section, Heart Catheterization Additional Past Surgical History / Comment(s): csection X1. wisdom teeth when 17 y.o. , GASTRIC BYPASS 10/19/23, EGD, Past Anesthesia/Blood Transfusion Reactions: No Reported Reaction, Motion Sickness Smoking Status: Former smoker - Past Family History Mother Family Medical History: No Reported History Medications and Allergies Home Medications Medication Instructions Recorded Confirmed Type Vit No.179/Iron/Folic 1 each PO DAILY 12/19/21 02/08/24 History [ Tablet] Calcium Carbonate [Calcium] 600 mg PO BID 02/08/24 02/08/24 History Cholecalciferol (Vitamin D3) 50 mcg PO BID 02/08/24 02/08/24 History [Vitamin D3 (50 Mcg = 2000 Iu)] L.acidoph,Paracasei, B.lactis 1 each PO DAILY 02/08/24 02/08/24 History [Probiotic] Magnesium Oxide [Magnesium] 1,500 mg PO HS 02/08/24 02/08/24 History Allergies Allergy/AdvReac Type Severity Reaction Status Date / Time latex Allergy Itching, Verified 02/08/24 12:31 Skin Irritation Exam Osteopathic Statement: *. No significant issues noted on an osteopathic structural exam other than those noted in the History and Physical/Consult. Heart: Regular rate and rhythm Lungs: Clear to auscultation bilaterally Abdomen: Soft, nontender Extremities: Negative Homans sign Assessment and Plan (1) Menorrhagia Status: Acute Code(s): N92.0 - EXCESSIVE AND FREQUENT MENSTRUATION WITH REGULAR CYCLE SNOMED Code(s): 490104566 Plan: 1. D&C hysteroscopy and endometrial ablation with NovaSure
[~2024-02-12 08:13] MED LIST changes: +HYDROmorphone 0.5 MG/0.5 ML SYRINGE IVP PRN; -LACTATED RINGERS 1,000 ML IV SCH; +Pre Op ABX Message 1 EACH MISC MISCELLANE ONE
[2024-02-12] MEDS: ONDANSETRON 4 MG/2 ML VIAL IVP ONE (08:48)
[2024-02-12] MEDS: DEXAMETHASONE SOD PHOSPHATE 4 MG/ML 1 ML VIAL IV ONE (08:48)
[2024-02-12] MEDS: LACTATED RINGERS 1,000 ML IV SCH (08:48)
[2024-02-12] MEDS: IV FLUID CONTINUATION 1,000 ML IV ONE (08:52)
[2024-02-12] MEDS ORDERED: fentaNYL (PF) 50 MCG/ML 2 ML AMP ONE (08:55)
[2024-02-12] MEDS ORDERED: ROCURONIUM 10 MG/ML (5 ML VIAL) IV ONE (08:55)
[2024-02-12] MEDS ORDERED: MIDAZOLAM 2 MG/2 ML VIAL ONE (08:55)
[2024-02-12] MEDS ORDERED: PROPOFOL 10 MG/ML 20 ML VIAL IV ONE (08:55)
[2024-02-12] MEDS ORDERED: LIDOCAINE 1% INJ 10MG/ML (20 ML MDV) ONE (08:55)
[2024-02-12] MEDS ORDERED: SUCCINYLCHOLINE CHLORIDE 200 MG/10 ML VIAL IV ONE (08:55)
[2024-02-12] MEDS ORDERED: KETOROLAC 15 MG/ML 1 ML VIAL ONE (08:55)
[2024-02-12] MEDS: SCOPOLAMINE 1 MG/72 HR PATCH TRANSDERM STA (08:57)
--- NOTE | 2024-02-12 09:27 | P.OP ---
Date of Procedure: 02/12/24 Preoperative Diagnosis: 1. menorrhagia Postoperative Diagnosis: 1. menorrhagia Procedure(s) Performed: D&C hysteroscopy and endometrial ablation with NovaSure Anesthesia: MARION (kristal) Surgeon: Martha Wiley Estimated Blood Loss (ml): 3 IV fluids (ml): 400 Urine output (ml): 10 Pathology: other (endometrial currettings) Condition: stable Disposition: floor Operative Findings: adequate ablation after NovaSure. Description of Procedure: Patient is taken the operating room where general anesthesia was obtained without difficulty. She was prepped and draped in normal sterile fashion dorsal lithotomy position, legs placed in the [employer] cane stirrups. Bladder was drained of all urine. Weighted speculum placed in the vagina and the anterior lip the cervix was grasped with serial tooth tenaculum. The uterus sounded to 9 cm and the cervix under 3 cm making the cavity length 6 cm. The cervix was dilated to #8 Hegar dilator. Hysteroscopy was then performed. Both ostia were visualized and there was a smooth contour of the uterus. Sharp curet was then gently used to obtain endometrial curettings. The NovaSure was introduced into the uterus with a cavity length of 6 cm, width 4.2 cm. after cavity assessment was passed, the time of ablation was 60 seconds at [address]. Hysteroscopy was again performed and adequate ablation was noted. All instruments removed from the vagina. Patient tolerated the procedure well, sponge and instrument counts were correct 2 and she was taken to recovery in stable condition.
[2024-02-12 09:39] VITALS: TEMP 97.2
[2024-02-12 09:48] VITALS: RESP 16
[2024-02-12 10:33] VITALS: BP 104/68; PULSE 60
== END 2024-02-12 10:51 | disposition home or self-care (01) ==
LOC: OR 08:13
PROVIDERS: ATTEND Obstetrics & Gynecology
DX: N92.0 Excessive and frequent menstruation with regular cycle (principal); K58.9 Irritable bowel syndrome, unspecified; Z98.84 Bariatric surgery status; Z87.891 Personal history of nicotine dependence; Z91.040 Latex allergy status; Z79.899 Other long term (current) drug therapy
CPT/HCPCS: 81025; 58563; J2250; J0330; J1100; J2405; J2003; J3010; J1885; J2704